=== PATIENT | female | born 1990 | race African-American/Black ===

== ENCOUNTER 2018-03-17 02:45 | Emergency (ER) | payer SELFPAY ==
[2018-03-17 03:18] LABS: Hemoglobin 12.3 g/dL (12.0-16.0); Mean Corpuscular HGB CONC 33.5 g/dL (32.0-36.0); Mean Corpuscular Hemoglobin 25.4 pg (27.0-31.0); Mean Platelet Volume 6.4 fL (7.4-10.4); Platelet Count 376 thou/uL (130-400); RBC Distribution Width 13.7 % (11.5-14.5); Red Blood Cell (RBC) Count 4.86 mill/uL (4.20-5.40); White Blood Cell (WBC) Count 5.3 thou/uL (4.8-10.8)
[2018-03-17 03:24] LABS: Bilirubin Negative (Negative); Blood, Urine Negative (Negative); Clarity CLEAR (Clear); Glucose, Urine (Dipstick) Negative (Negative); Leukocyte Negative (Negative); Nitrite Negative (Negative); Protein, Urine (Dipstick) Negative (Neg-Trace); Specific Gravity, Urine 1.027 (1.002-1.036); Urobilinogen 0.2 mg/dL (0.2-1.0); pH, Urine 5.5 (5.0-9.0)
[2018-03-17 03:25] LABS: Pregnancy Test - Urine (BHCG) Negative (Negative); Pregu Control Background? CLEAR/WHITE (CLR/WHITE); Pregu Control Bar Appear? YES (CONTROL BAR); Specific Gravity 1.027 (1.002-1.036)
[2018-03-17 03:35] LABS: ALT (SGPT) 20 U/L (8-55); AST (SGOT) 20 U/L (5-34); Albumin 3.6 g/dL (3.5-5.0); Alkaline Phosphatase 55 U/L (40-150); Anion Gap 12 mmol/L (10-20); BUN (Urea Nitrogen) 14 mg/dL (7.0-18.7); Bilirubin, Total 0.4 mg/dL (0.2-1.2); Calc. Creatinine Clearance 0 mL/min (70-130); Calcium 9.7 mg/dL (7.8-10.44); Carbon Dioxide 24 mmol/L (22-29); Chloride 106 mmol/L (98-107); Estimated GFR-MDRD Greater than 90; Globulin 3.6 g/dL (2.4-3.5); Glucose 98 mg/dL (70-105); Lipase 25 U/L (8-78); Lymphocytes 66 % (21-51); MDiff Complete? YES; Microcytosis SLIGHT = 6-15 cells (100X) (0-5/hpf); Monocytes 3 % (0-10); Neutrophil 31 % (42-75); PLT Morphology Comment Appears Adequate; Potassium 3.8 mmol/L (3.5-5.1); Protein, Total 7.2 g/dL (6.0-8.3); Sodium 138 mmol/L (136-145)
[2018-03-17] MEDS ORDERED: Morphine 4 MG/ML VIAL ONE (04:02)
[2018-03-17] MEDS ORDERED: Ketorolac Tromethamine 30 MG/ML VIAL ONE (04:02)
--- NOTE | 2018-03-17 08:16 | ULT ---
PRELIMINARY REPORT/[facility]/EMERGENTY AFTER-HOURS PROCEDURE US Abdomen Limited EXAM DATE/TIME: 03/17/2018 4:15 AM CLINICAL HISTORY: 28 years old, female; Pain; Abdominal pain; Epigastric; Patient HX: Abd pain x 3 days w/ nausea TECHNIQUE: Real-time ultrasound of the abdomen with image documentation. Examination is focused on the region of clinical interest. COMPARISON: No relevant prior studies available. FINDINGS: Liver: Unremarkable liver, no focal abnormality. Gallbladder: Unremarkable gallbladder. No cholelithiasis. No gallbladder wall thickening or pericholecystic fluid. Common bile duct: No biliary dilation, common duct measures 4.2 mm. Pancreas: Visible pancreas unremarkable. Some of the pancreas is obscured by bowel gas. Right kidney: Images of the right kidney show no hydronephrosis. IMPRESSION: 1. No cholelithiasis or biliary tree dilation. 2. Other findings discussed above. Thank you for allowing us to participate in the care of your patient. Dictated and Authenticated by: Jose Wong MD 03/17/2018 6:29 AM Central Time ([place] & [place]) SONOGRAM RIGHT UPPER QUADRANT: Date: 03-17-18 Performed on Emergency Basis at 0416 hours. History: Right upper quadrant pain. FINDINGS: Agree with the preliminary report by Dr. Wong from [facility]. No evidence of gallstones or b iliary obstruction. Code QA POS: [facility]
--- NOTE | 2018-03-17 08:39 | RAD ---
PORTABLE AP CHEST X-RAY: 03/17/2018 HISTORY: Abdominal pain and chest pain. The patient states right upper quadrant abdominal pain and nausea for three days. COMPARISON: None available. FINDINGS: The cardiac silhouette and pulmonary vasculature are within normal limits. The lungs are clear. The osseous structures are intact. IMPRESSION: No acute cardiopulmonary process. POS: [facility]
== END 2018-03-17 07:47 | disposition home or self-care (01) ==
LOC: ERS 02:45
DX: K29.70 Gastritis, unspecified, without bleeding (principal); F17.210 Nicotine dependence, cigarettes, uncomplicated
CPT/HCPCS: 71045; 76705; 80053; 81003; 81025; 83690; 85025; 96374; 96375; J1885; J2270